=== PATIENT | female | born 1975 | race Caucasian/White ===

== ENCOUNTER 2017-12-02 23:20 | Emergency (ER) | payer MEDICAID ==
[~2017-12-02 23:20] MED LIST: DOCUSIL100 MG PO; KEPPRA500 MG PO; LITHIUM CARB300 M1 PO; NEXIUM40 MG PO; PROAIR HFA0.09 MG/A1 INH; SEROQUEL300 MG PO; TRAZODONE100 MG PO
[2017-12-03 01:01] LABS: BASOPHIL % 0.7 % (0-2)
[2017-12-03 01:03] LABS: CALCIUM 9.1 mg/dL (8.5-10.1); CARBON DIOXIDE 25.4 mmol/L (21-32); CHLORIDE SERUM 103 mmol/L (98-107); CREATININE SERUM 0.7 mg/dL (0.6-1.0); GFR1 > 60 mL/min; GLUCOSE SERUM 116 mg/dL (74-106); SODIUM SERUM 137 mmol/L (136-145)
[2017-12-03 01:07] LABS: ALBUMIN 3.4 g/dL (3.4-5.0); ALKALINE PHOSPHATASE 102 U/L (46-116); ALT/SGPT 40 U/L (14-59); AST/SGOT 25 U/L (15-37); LIPASE 118 IU/L (73-393); TOTAL PROTEIN, SERUM 7.1 g/dL (6.4-8.2)
[2017-12-03 01:08] LABS: microscopic required? YES; urine erythrocyte NEGATIVE (NEGATIVE)
[2017-12-03 02:20] LABS: PLATELET COUNT 407 x10^3mcL (130-400); RED CELL DISTRIBUTION WIDTH 15.1 % (11.5-14.5)
[2017-12-03 02:45] VITALS: BP 120/74
== END 2017-12-03 02:45 | disposition home or self-care (01) ==
LOC: ED 23:20
PROVIDERS: Emergency Medicine
DX: K52.9 Noninfective gastroenteritis and colitis, unspecified (principal); J45.909 Unspecified asthma, uncomplicated; Z88.0 Allergy status to penicillin; Z88.6 Allergy status to analgesic agent
CPT/HCPCS: 36415; Q9967